=== PATIENT | male | born 1945 | race Two or more races ===

== ENCOUNTER 2016-10-14 01:19 | Emergency (ER) | payer MEDICAID, MEDICARE, OTHER ==
[~2016-10-14] VITALS: Ht 170.2 cm; Wt 104.3 kg
[~2016-10-14 01:19] MED LIST: ACETAMINOPHEN650 M2 ORAL; AMARYL4 MG ORAL; AMBIEN5 MG ORAL; AMMONIUM LACTA140 GM TOPIC; ASPIRIN81 MG ORAL; ATORVASTATIN CA20 MG ORAL; BENADRYL A12.5 MG/5 ORAL; BENAZEPRIL HCL10 MG ORAL; BISACODYL MC; CARAFATE1 GM/10 M1 ORAL; CATAPRES0.1 MG ORAL; CATAPRES0.2 MG ORAL; COLACE50 MG ORAL; DILAUDID2 MG ORAL; DOCUSATE SODIU100 MG ORAL; DULCOLAX10 MG RC; DUONEB 0.5 MG-33 ML INH; FERROUS SU300 MG/52 PO; FUROSEMIDE20 M1 ORAL; GABAPENTIN600 MG ORAL; HEPARIN SO5000 UNIT2 SUBQ; HUMALOG100 UNIT/4 SUBQ; HYDRALAZINE HCL10 MG ORAL; LANTUS SOL100 UNIT/1 SUBQ; MULTIVITAMINS1 EAC8 ORAL; MULTIVITAMINS1 EAC8 PO; NAMENDA10 MG ORAL; NAMENDA5 MG ORAL; NORCO 10/3251 EA ORAL; NOVOLIN 70100 UNIT/1 SUBQ; NOVOLOG100 UNIT/3 SUBQ; NUEDEXTA 20-101 EAC1 PO; OMEPRAZOLE20 M2 ORAL; PROTONIX40 MG ORAL; REGLAN5 MG ORAL; TOUJEO SOL300 UNIT/1 SQ; TRADJENTA5 MG PO; TYLENOL650 MG/20. ORAL; VICODIN 5-5001 EACH ORAL; VITAMIN C250 MG ORAL; XARELTO20 MG ORAL; ZANTAC150 MG ORAL; ZOFRAN ODT4 MG ORAL
--- NOTE | 2016-10-14 01:47 | Emergency Room Report ---
History of Present Illness General Chief Complaint: Abdominal Pain Source: Patient, Medical Record, EMS Present Illness HPI This is a 70-year-old male with a history of diabetes and CVA. He presents with chief complaint of right upper quadrant pain. He also has some burning with urination. Patient said about a week ago he has a forceful vomiting. Since then he said having some pain in the mid upper right upper quadrant area. Worse with palpation. Worse with movement. He was admitted tonight to be evaluated. No new fever. No nausea no vomiting. Pain is 5/10. Worse with movement goes up to 7/10. He has a history of kidney stone in UTI. Allergies: Coded Allergies: WARFARIN SODIUM (Verified Allergy, Intermediate, ITCHING/RASHES/NAUSEA, ) Uncoded Allergies: COUMADIN (Allergy, Unknown, 09/23/15) Patient History Past Medical History: see triage record, old chart reviewed Past Surgical History: other Pertinent Family History: none Social History: Denies: smoking Immunizations: other Reviewed Nursing Documentation: PMH: Agreed, PSxH: Agreed Nursing Documentation-PMH Past Medical History: No History, Except For Hx Cardiac Problems: Yes - Peripheral Vascular disease, anemia Hx Hypertension: Yes Hx Asthma: Yes Hx COPD: Yes Hx Diabetes: Yes - Type 2 Hx Cancer: No Hx Gastrointestinal Problems: Yes - GT in past Hx Dialysis: No - ANEMIA Hx Cerebrovascular Accident: Yes - LEFT SIDED WEAKNESS Hx Seizures: Yes Hx Epilepsy: Yes Hx Peripheral Neuropathy: Yes Hx Speech Problem: Yes Hx Weakness: Yes - left side Review of Systems Eye: Denies: blurred vision, eye pain ENT: Denies: ear pain, nose congestion, throat swelling Respiratory: Denies: cough, shortness of breath Cardiovascular: Denies: chest pain, palpitations Gastrointestinal: Reports: abdominal pain, nausea, vomiting, Denies: diarrhea Musculoskeletal: Denies: back pain, joint pain Skin: Denies: rash Neurological: Denies: headache, numbness Endocrine: Denies: increased thirst, increased urine Hematologic/Lymphatic: Denies: easy bruising All Other Systems: negative except mentioned in HPI Physical Exam Vital Signs Date Time Temp Pulse Resp B/P Pulse Ox O2 Delivery O2 Flow Rate FiO2 10/14/16 01:23 97.5 83 18 115/65 92 Room Air vitals normal Sp02 EP Interpretation: reviewed, normal General Appearance: well appearing, no apparent distress, alert Head: normocephalic, atraumatic Eyes: bilateral eye EOMI, bilateral eye PERRL ENT: hearing grossly normal, normal pharynx Neck: full range of motion, supple, no meningismus Respiratory: chest non-tender, lungs clear, normal breath sounds Cardiovascular #1: regular rate, rhythm, no murmur Gastrointestinal: normal bowel sounds, no mass, no organomegaly, no bruit, non- distended, tenderness - Tender to palpation in the right mid and right upper quadrant area. No guarding. Musculoskeletal: back normal, normal range of motion Neurologic: alert, oriented x3, other - Left-sided hemiparesis Psychiatric: mood/affect normal Skin: warm/dry Medical Decision Making Diagnostic Impression: Primary Impression: Strain of rectus abdominis muscle Qualified Codes: S39.011A - Strain of muscle, fascia and tendon of abdomen, initial encounter Additional Impression: UTI (urinary tract infection) Qualified Codes: N30.00 - Acute cystitis without hematuria ER Course patient presents with right upper quadrant right mid upper quadrant pain. This is secondary to rectus muscle strain/hematoma. this is probably from forceful vomiting a week ago. there is no internal injury. He has no cough or congestion to indicate pneumonia.he does have a urinary tract infection. He grew out Klebsiella in the past and fortunately pain sensitive. We'll discharge home. Lab Results Impression Labs of elevated glucose. CT/MRI/US Diagnostic Results CT/MRI/US Diagnostic Results : Imaging Test Ordered: CT abdomen and pelvis Impression CT read by radiologist. Enlargement the right rectus muscle which may suggest hemorrhage. Cholecystectomy. Last Vital Signs Date Time Temp Pulse Resp B/P Pulse Ox O2 Delivery O2 Flow Rate FiO2 10/14/16 01:23 97.5 83 18 115/65 92 Room Air Status: improved Disposition: HOME, SELF-CARE Condition: Stable Scripts Levofloxacin* (LEVAQUIN*) 500 Mg Tablet 500 MG ORAL DAILY, #7 TAB Prov: DANIELLE GLEZ M.D. 10/14/16 Additional Instructions: Followup with your in 7 days. Return if worse. DANIELLE GLEZ M.D. Oct 14, 2016 01:46
[2016-10-14 02:29] LABS: KETONES,URINE NEGATIVE (NEGATIVE); LEUKOCYTE ESTERASE ,URINE 3+ (NEGATIVE); NITRITE,URINE POSITIVE (NEGATIVE); PH,URINE 5 (4.5-8.0); PROTEIN,URINE NEGATIVE (NEGATIVE); UROBILINOGEN,URINE NORMAL MG/DL (0.0-1.0)
[2016-10-14 02:30] LABS: BASOPHILS % (AUTO) 0.7 % (0.0-2.0); EOSINOPHILS % (AUTO) 4.5 % (0.0-3.0); LYMPHOCYTES % (AUTO) 15.1 % (20.0-45.0); MEAN CORPUSCULAR HEMOGLOBIN 28.6 PG (27.0-31.0); MEAN CORPUSCULAR VOLUME 89 FL (80-99); MEAN PLATELET VOLUME 8.5 FL (6.5-10.1); MONOCYTES % (AUTO) 6.8 % (1.0-10.0); NEUTROPHILS % (AUTO) 72.8 % (45.0-75.0); PLATELET COUNT 225 K/UL (150-450); RED BLOOD COUNT 5.24 M/UL (4.70-6.10); WHITE BLOOD COUNT 12.1 K/UL (4.8-10.8)
[2016-10-14 02:44] LABS: APPEARANCE,URINE SLIGHTLY CLOUDY
[2016-10-14 02:45] LABS: ALANINE AMINOTRANSFERASE 9 U/L (3-41); ALBUMIN/GLOBULIN RATIO 0.9 (1.0-2.7); ANION GAP 13 (5-15); ASPARTATE AMINO TRANSFERASE 23 U/L (5-40); BACTERIA,URINE MANY /HPF; CALCIUM 8.8 mg/dL (8.6-10.2); CARBON DIOXIDE 27 mEQ/L (20-30); CHLORIDE 97 mEQ/L (98-107); CREATININE 0.9 mg/dL (0.7-1.2); GLOMERULAR FILTRATION RATE > 60 mL/min (>60); HEMOLYSIS 14; LIPASE 11 U/L (< 60); POTASSIUM 4.5 mEQ/L (3.4-4.9); SODIUM 137 mEQ/L (135-145); SQUAMOUS EPITHELIAL CELL,UR FEW /LPF (NONE/OCC); TOTAL PROTEIN 6.7 g/dL (6.6-8.7); WBC,URINE 60-80 /HPF (0 - 0)
[2016-10-14 03:15] VITALS: BP 113/51
[2016-10-14] MEDS ORDERED: cefTRIAXone 1 GM in NS 55 ML IVPB ONE (03:30)
[2016-10-14] MEDS ORDERED: Tubing IV Cassette IV ONE (03:35)
[2016-10-14] MEDS ORDERED: NS 55 ML IV ONE (03:35)
[2016-10-14] MEDS ORDERED: LEVAQUIN500 MG ORAL (03:44)
[2016-10-14] MEDS ORDERED: Morphine Sulfate 4mg/ml Inj IVP ONE (04:00)
[2016-10-14 05:00] VITALS: BP 117/66
[2016-10-14 05:32] VITALS: BP 117/66
--- NOTE | 2016-10-14 08:32 | Diagnostic Imaging Report ---
Indication: ABD PAIN Technique: Continuous helical scanning was performed without any contrast material from the diaphragms through the pelvis or specific request.. Axial, sagittal, and coronal images were generated. Dose: Total Dose Length Product - DLP [address] Dose Index - CTDIvol(s) 26.20 mGy. Comparison: 09/23/2015 Findings: Study is suboptimal due to artifact from patient's arms overlying the field. The upper right anterior rectus muscle is enlarged compared to previous study. Severe slight density. There is a nodular primarily interstitial infiltrate in the left lower lobe. Is worsened since prior exam. The liver is unremarkable. The gallbladder is surgically absent. The spleen is normal. The stomach has decompressed. There is a tract to the stomach from an old gastrostomy tube. Pancreas is unremarkable. Adrenal glands are normal. Again seen is a cyst in the right kidney. Kidneys are otherwise unchanged. There is an inferior vena caval filter the renal veins with scarring of the IVC. The aorta is calcified. Retroperitoneum is free of significant adenopathy. The bladder is unremarkable. Prostate and seminal vesicles are normal. The bones are unchanged. The remainder the study is unchanged. Impression: Stomach is decompressed. Left lower lobe infiltrate increased from previous study. Possibility of pneumonia should be considered. Probable hemorrhage in the right upper anterior rectus muscle. This likely represents hemorrhage in the anterior rectus muscle. No other change from previous study.. The above report is concordant with preliminary reading by [employer] . The CT scanner at [facility] is accredited by the [employer] and the scans are performed using protocols designed to limit radiation exposure to as low as reasonably achievable to attain images of sufficient resolution adequate for diagnostic evaluation.
== END 2016-10-14 05:25 | disposition home or self-care (01) ==
LOC: EDBD 01:19 → EMR 01:47
DX: S39.011A Strain of muscle, fascia and tendon of abdomen, initial encounter (principal); N30.00 Acute cystitis without hematuria; X58.XXXA Exposure to other specified factors, initial encounter; Y93.9 Activity, unspecified; Y92.9 Unspecified place or not applicable; Z88.8 Allergy status to other drugs, medicaments and biological substances; I10 Essential (primary) hypertension; Z87.442 Personal history of urinary calculi; E11.40 Type 2 diabetes mellitus with diabetic neuropathy, unspecified; G81.94 Hemiplegia, unspecified affecting left nondominant side; J44.9 Chronic obstructive pulmonary disease, unspecified; J45.909 Unspecified asthma, uncomplicated; G40.909 Epilepsy, unspecified, not intractable, without status epilepticus; D64.9 Anemia, unspecified; Z90.49 Acquired absence of other specified parts of digestive tract
CPT/HCPCS: 36415; 74176; 80053; 81003; 83690; 85025; 87086; 87181; 96360; 96374; 96375; 99284; J0696; J2270; J2405

== ENCOUNTER 2017-02-09 11:27 | Emergency (ER) | payer MEDICARE, OTHER ==
[~2017-02-09] VITALS: Ht 182.9 cm; Wt 86.2 kg
[~2017-02-09 11:27] MED LIST changes: +LEVAQUIN500 MG ORAL
[2017-02-09 11:34] VITALS: BP 127/64
[2017-02-09] MEDS ORDERED: Famotidine 20 MG/ 2ML VIAL IVP ONE (11:45)
[2017-02-09] MEDS ORDERED: Morphine Sulfate 2mg/ml Inj IVP ONE (12:00)
[2017-02-09 12:29] LABS: BASOPHILS % (AUTO) 0.5 % (0.0-2.0); EOSINOPHILS % (AUTO) 3.8 % (0.0-3.0); LYMPHOCYTES % (AUTO) 13.3 % (20.0-45.0); MEAN CORPUSCULAR HEMOGLOBIN 28.1 PG (27.0-31.0); MEAN CORPUSCULAR HGB CONC 31.2 G/DL (32.0-36.0); MEAN CORPUSCULAR VOLUME 90 FL (80-99); MEAN PLATELET VOLUME 8.3 FL (6.5-10.1); MONOCYTES % (AUTO) 6.2 % (1.0-10.0); NEUTROPHILS % (AUTO) 76.3 % (45.0-75.0); PLATELET COUNT 295 K/UL (150-450); RED BLOOD COUNT 5.41 M/UL (4.70-6.10); RED CELL DISTRIBUTION WIDTH 14.3 % (11.6-14.8); WHITE BLOOD COUNT 15.2 K/UL (4.8-10.8)
[2017-02-09 12:39] LABS: PROTHROMBIN TIME 10.2 SEC (9.30-11.50)
[2017-02-09 12:48] LABS: ALANINE AMINOTRANSFERASE 11 U/L (3-41); ANION GAP 11 (5-15); ASPARTATE AMINO TRANSFERASE 15 U/L (5-40); CALCIUM 9.1 mg/dL (8.6-10.2); CARBON DIOXIDE 29 mEQ/L (20-30); CHLORIDE 99 mEQ/L (98-107); HEMOLYSIS 1; LIPASE 11 U/L (< 60); POTASSIUM 3.9 mEQ/L (3.4-4.9); SODIUM 139 mEQ/L (135-145); TOTAL PROTEIN 7.6 g/dL (6.6-8.7)
[2017-02-09 12:49] LABS: TROPONIN I < 0.30 ng/mL (<=0.30)
[2017-02-09 13:52] VITALS: BP 125/69
--- NOTE | 2017-02-09 14:39 | Emergency Room Report ---
History of Present Illness General Chief Complaint: Gastrointestinal Bleed Source: Patient, Caregiver Present Illness HPI Patient is a 71-year-old male brought in by EMS after increased coffee-ground emesis. Patient was noted to have multiple episodes which he was having had dark emesis at his [place] [facility].This happened multiple times throughout the night. Patient prior history of lower extremity cellulitis. Intermittently the patient been on IV antibiotics.Patient not been having a bloody stools. Allergies: Coded Allergies: WARFARIN SODIUM (Verified Allergy, Intermediate, ITCHING/RASHES/NAUSEA, ) Uncoded Allergies: COUMADIN (Allergy, Unknown, 09/23/15) Patient History Past Medical History: see triage record Reviewed Nursing Documentation: PMH: Agreed, PSxH: Agreed Nursing Documentation-PMH Hx Cardiac Problems: Yes - Peripheral Vascular disease, anemia Hx Hypertension: Yes Hx Asthma: Yes Hx COPD: Yes Hx Diabetes: Yes - Type 2 Hx Cancer: No Hx Gastrointestinal Problems: Yes - GT in past Hx Dialysis: No - ANEMIA Hx Cerebrovascular Accident: Yes - LEFT SIDED WEAKNESS Hx Seizures: Yes Hx Epilepsy: Yes Hx Peripheral Neuropathy: Yes Hx Speech Problem: Yes Hx Weakness: Yes - left side Review of Systems All Other Systems: negative except mentioned in HPI Physical Exam Vital Signs Date Time Temp Pulse Resp B/P Pulse Ox O2 Delivery O2 Flow Rate FiO2 02/09/17 11:25 98.4 110 16 123/66 93 Room Air Sp02 EP Interpretation: reviewed, normal General Appearance: normal inspection, well appearing, no apparent distress, alert, GCS 15 Head: atraumatic ENT: normal ENT inspection, hearing grossly normal, normal voice Neck: normal inspection, full range of motion, supple, no bony tend Respiratory: normal inspection, lungs clear, normal breath sounds, no respiratory distress, no retraction, no wheezing Cardiovascular #1: regular rate, rhythm, no edema Gastrointestinal: normal inspection, normal bowel sounds, non tender, soft, no guarding, no hernia Genitourinary: no CVA tenderness Musculoskeletal: normal inspection, back normal, normal range of motion Neurologic: normal inspection, alert, responsive, speech normal, motor weakness Psychiatric: normal inspection, mood/affect normal, other - poor insight judgement Skin: normal inspection, normal color, no rash Medical Decision Making Diagnostic Impression: Primary Impression: DM (diabetes mellitus) Additional Impressions: Hematemesis Left leg cellulitis ER Course Patient presented for hematemesis. The differential diagnosis included wasn't limited to ulcer, bowel obstruction, variceal bleed, coagulopathy, anemia among others.Because of complexity of patient's case laboratory testing and imaging studies were ordered.Laboratory studies are notable for elevated white blood count as well as a normal hemoglobin. Patient medical issues was discussed with the patient's daughter who is his durable power of workers compensation attorney per [place] [facility]. Patient's daughter Julia agreed to transfer for hospitalization . Patient started on IV Pepcid. The patient was discussed with Dr. Arzate who agreed to accept the patient in transfer. Labs Test 02/09/17 12:15 White Blood Count 15.2 K/UL (4.8-10.8) Red Blood Count 5.41 M/UL (4.70-6.10) Hemoglobin 15.2 G/DL (14.2-18.0) Hematocrit 48.6 % (42.0-52.0) Mean Corpuscular Volume 90 FL (80-99) Mean Corpuscular Hemoglobin 28.1 PG (27.0-31.0) Mean Corpuscular Hemoglobin Concent 31.2 G/DL (32.0-36.0) Red Cell Distribution Width 14.3 % (11.6-14.8) Platelet Count 295 K/UL (150-450) Mean Platelet Volume 8.3 FL (6.5-10.1) Neutrophils (%) (Auto) 76.3 % (45.0-75.0) Lymphocytes (%) (Auto) 13.3 % (20.0-45.0) Monocytes (%) (Auto) 6.2 % (1.0-10.0) Eosinophils (%) (Auto) 3.8 % (0.0-3.0) Basophils (%) (Auto) 0.5 % (0.0-2.0) Prothrombin Time 10.2 SEC (9.30-11.50) Prothromb Time International Ratio 1.0 (0.9-1.1) Activated Partial Thromboplast Time 25 SEC (23-33) Sodium Level 139 mEQ/L (135-145) Potassium Level 3.9 mEQ/L (3.4-4.9) Chloride Level 99 mEQ/L (98-107) Carbon Dioxide Level 29 mEQ/L (20-30) Anion Gap 11 (5-15) Blood Urea Nitrogen 18 mg/dL (7-23) Creatinine 1.0 mg/dL (0.7-1.2) Estimat Glomerular Filtration Rate mL/min (>60) Glucose Level 212 mg/dL (74-106) Calcium Level 9.1 mg/dL (8.6-10.2) Total Bilirubin 0.3 mg/dL (0.0-1.2) Aspartate Amino Transf (AST/SGOT) 15 U/L (5-40) Alanine Aminotransferase (ALT/SGPT) 11 U/L (3-41) Alkaline Phosphatase 98 U/L (40-129) Troponin I < 0.30 ng/mL (<=0.30) Total Protein 7.6 g/dL (6.6-8.7) Albumin 3.8 g/dL (3.5-5.2) Globulin 3.8 g/dL Albumin/Globulin Ratio 1.0 (1.0-2.7) Lipase 11 U/L (< 60) Last Vital Signs Date Time Temp Pulse Resp B/P Pulse Ox O2 Delivery O2 Flow Rate FiO2 02/09/17 13:52 98.2 93 14 125/69 96 Room Air Status: unchanged Disposition: ASSISTED LIVING Condition: Serious Referrals: [facility],REFERRING (PCP) Atif Pollack Feb 09, 2017 14:39
[2017-02-09 15:46] VITALS: BP 150/71
[2017-02-09] MEDS ORDERED: LORazepam Inj 2mg/ml 1ml IV ONE (16:45)
[2017-02-09 16:47] VITALS: BP 150/71
== END 2017-02-09 16:50 | disposition short-term general hospital (02) ==
LOC: EDBD 11:27 → EMR 12:41
DX: E11.9 Type 2 diabetes mellitus without complications (principal); K92.0 Hematemesis; L03.116 Cellulitis of left lower limb; Z88.8 Allergy status to other drugs, medicaments and biological substances; I10 Essential (primary) hypertension; J44.9 Chronic obstructive pulmonary disease, unspecified; G81.94 Hemiplegia, unspecified affecting left nondominant side; G40.909 Epilepsy, unspecified, not intractable, without status epilepticus; E11.40 Type 2 diabetes mellitus with diabetic neuropathy, unspecified
CPT/HCPCS: 36415; 80053; 83690; 84484; 85025; 85610; 85730; 86850; 86900; 86901; 96374; 96375; 99284; J2270; S0028

== ENCOUNTER 2017-02-17 12:25 | Emergency (ER) | payer MEDICARE, OTHER ==
[~2017-02-17] VITALS: Ht 172.7 cm; Wt 90.7 kg
--- NOTE | 2017-02-17 12:51 | Emergency Room Report ---
History of Present Illness General Chief Complaint: Upper Respiratory Illness Source: Patient, Medical Record Present Illness HPI 71-year-old male history of hypertension diabetes dementia GERD presenting with hematemesis. Patient is poor historian and unable to give much information. However patient states that he has had nausea and vomiting unclear how many days dark in color. Patient denies any diarrhea or black stools. Patient denies any fever chills chest pain or shortness of breath. Per charts patient is not on aspirin or anticoagulation Upon previous charts patient was here about one week ago for coffee-ground emesis and was transferred to outside hospital for further care at that visit. Unclear if patient had endoscopy or any intervention at that visit. Allergies: Coded Allergies: WARFARIN SODIUM (Verified Allergy, Intermediate, ITCHING/RASHES/NAUSEA, ) Uncoded Allergies: COUMADIN (Allergy, Unknown, 09/23/15) Patient History Past Medical History: see triage record Past Surgical History: unable to obtain Pertinent Family History: unable to obtain Nursing Documentation-[facility] Past Medical History Deferred: Pt Cognitively Impaired Past Medical History: No History, Except For Hx Cardiac Problems: Yes - Peripheral Vascular disease, anemia Hx Hypertension: Yes Hx Asthma: Yes Hx COPD: Yes Hx Diabetes: Yes - Type 2 Hx Cancer: No Hx Gastrointestinal Problems: Yes - GT in past Hx Dialysis: No - ANEMIA Hx Cerebrovascular Accident: Yes - LEFT SIDED WEAKNESS Hx Seizures: Yes Hx Epilepsy: Yes Hx Peripheral Neuropathy: Yes Hx Speech Problem: Yes Hx Weakness: Yes - left side Review of Systems Gastrointestinal: Reports: hematemesis, nausea, vomiting All Other Systems: limited - lmiited due to patients dementia Physical Exam Vital Signs Date Time Temp Pulse Resp B/P Pulse Ox O2 Delivery O2 Flow Rate FiO2 02/17/17 12:19 97.9 115 16 111/81 97 Room Air Sp02 EP Interpretation: reviewed, normal General Appearance: normal inspection, alert, non-toxic, other - elderly male, aox2, conversing appropriately at bedside, not in resp distress, not in pain Head: normocephalic, atraumatic Eyes: bilateral eye EOMI, bilateral eye PERRL, bilateral eye normal inspection ENT: normal ENT inspection, normal pharynx, normal voice, moist mucus membranes Neck: normal inspection, full range of motion, supple, no bony tend Respiratory: normal inspection, lungs clear, normal breath sounds, no respiratory distress, no retraction, no wheezing, speaking full sentences, chest symmetrical Cardiovascular #1: normal inspection, no edema, normal capillary refill, tachycardia Gastrointestinal: normal inspection, non tender, soft, non-distended, no guarding, other - well healed surgical scar on abdomen. soft all quadrants Musculoskeletal: normal inspection, back normal, normal range of motion, non- tender Neurologic: normal inspection, alert, oriented x3, responsive, motor strength/ tone normal, sensory intact, normal gait, speech normal Psychiatric: normal inspection, judgement/insight normal, memory normal Skin: warm/dry, other - Bilateral lower extremity cellulitis. Right lower loo 2x2 cm ulcer nonpurulent drainage on anterior tib-fib with dressing clean dry and intact Medical Decision Making Medicare Attestation I, Anita Stewart MD hereby attest that the medical record entry for date of service, [id number] accurately reflects signatures/notations that I made in my capacity as MD when I treated/diagnosed the above listed Medicare beneficiary. I attest that this information is true, accurate and complete to the best of my knowledge. I understand that any falsification, omission, or concealment of material fact may subject me to administrative, civil, or criminal liability. This patient warrants hospital admission for extreme of age and has a condition that cannot be treated as outpatient. Diagnostic Impression: Primary Impression: History of upper gastrointestinal bleeding Additional Impression: ST segment changes on electrocardiogram ER Course 71 yo [place] sent [place] for ?coffee ground emesis vs. hemoptysis DDX: gerd/gastritis/gastric ulcer/avm vs. hemoptysis: pneumonia, lung CA, lung mass receiving abx for b/l lower ext cellulitis by [place] Plan: Obtain labs, coags, ua, ucx, CXR, EKG ER course: tachycardic 100, rectal temp 100.3 EKG: ?SUSAN in aVR changed from previous. patient is poor historian and unreliable. call to [facility] cardiology made. 1:[address] Quintero cardiology from [facility] - discussed case. patient is currently NAD at bedside, not diaphoretic, not c/o cp. will not activate stemi notification at this time and will trend trop. Labs: CXR: no acute cardiopulm disease troponin: negative x 1 labs: H/H stable from prior, mild leukocytosis improved from last week13.2, coags normal Patint has remained NAD during ed stay, not diaphoretic, not c/o cp/sob. repeat abd exams benign Disposition: Patient is to be xferred to outside hospital. Patient is stable for xfer. I spoke to cardiology Dr Chang / Dr. Quintero, from [facility] discussing patients mild SUSAN in aVR, NO stemi activation at this pamela. trop neg I spoke to Dr. Levin from [facility] who will receive pt. informed to repeat trop and ekg at their facility. Signed out to Dr. Alfredito Bhardwaj -luis antonio to [facility] from hx of UGI and EKG changes -if patient still here at 4 hour fernando, please perform rpeat ekg and trop EKG Diagnostic Results Rate: tachycardiac Rhythm: NSR ST Segments: other - mild SUSAN aVR with lateral depressions ASA given to the pt in ED: No Rhythm Strip Diag. Results EP Interpretation: yes Rate: 122 Rhythm: NSR, no PVC's, no ectopy Chest X-Ray Diagnostic Results Chest X-Ray Diagnostic Results : # of Views/Limited/Complete: 1 View Indication: Other EP Interpretation: Yes Interpretation: no consolidation, other - possible L sided pleural effusion Impression: Other - possible L sided pleural effusion Last Vital Signs Date Time Temp Pulse Resp B/P Pulse Ox O2 Delivery O2 Flow Rate FiO2 02/17/17 12:19 97.9 115 16 111/81 97 Room Air Disposition: [facility] Condition: Critical Anita Stewart M.D. Feb 17, 2017 12:51
[2017-02-17 13:06] VITALS: BP 111/81
[2017-02-17 13:37] LABS: INR 1.1 (0.9-1.1); PROTHROMBIN TIME 11.4 SEC (9.30-11.50)
[2017-02-17 13:40] LABS: TROPONIN I < 0.30 ng/mL (<=0.30)
[2017-02-17 13:43] LABS: ALANINE AMINOTRANSFERASE 9 U/L (3-41); ANION GAP 16 (5-15); ASPARTATE AMINO TRANSFERASE 18 U/L (5-40); CALCIUM 8.5 mg/dL (8.6-10.2); CARBON DIOXIDE 27 mEQ/L (20-30); CHLORIDE 93 mEQ/L (98-107); CREATININE 0.9 mg/dL (0.7-1.2); HEMOLYSIS 33; POTASSIUM 3.1 mEQ/L (3.4-4.9); SODIUM 136 mEQ/L (135-145); TOTAL PROTEIN 6.3 g/dL (6.6-8.7)
[2017-02-17 13:44] LABS: BASOPHILS % (AUTO) 0.8 % (0.0-2.0); EOSINOPHILS % (AUTO) 0.5 % (0.0-3.0); LYMPHOCYTES % (AUTO) 14.2 % (20.0-45.0); MEAN CORPUSCULAR HEMOGLOBIN 29.6 PG (27.0-31.0); MEAN CORPUSCULAR HGB CONC 32.7 G/DL (32.0-36.0); MEAN CORPUSCULAR VOLUME 91 FL (80-99); MEAN PLATELET VOLUME 9.1 FL (6.5-10.1); MONOCYTES % (AUTO) 7.6 % (1.0-10.0); NEUTROPHILS % (AUTO) 76.9 % (45.0-75.0); PLATELET COUNT 246 K/UL (150-450); RED BLOOD COUNT 5.84 M/UL (4.70-6.10); RED CELL DISTRIBUTION WIDTH 14.9 % (11.6-14.8); WHITE BLOOD COUNT 13.2 K/UL (4.8-10.8)
[2017-02-17 13:47] LABS: REFLEX LACTIC ACID YES OR NO YES
[2017-02-17 13:53] LABS: CKMB 2.6 ng/mL (< 6.7)
[2017-02-17] MEDS ORDERED: cefTRIAXone 1 GM in NS 55 ML IVPB ONE (14:30)
[2017-02-17 14:45] LABS: APPEARANCE,URINE CLEAR; KETONES,URINE 4+ (NEGATIVE); LEUKOCYTE ESTERASE ,URINE NEGATIVE (NEGATIVE); NITRITE,URINE NEGATIVE (NEGATIVE); PH,URINE 6 (4.5-8.0); PROTEIN,URINE NEGATIVE (NEGATIVE); UROBILINOGEN,URINE NORMAL MG/DL (0.0-1.0)
[2017-02-17 15:20] VITALS: BP 139/84
[2017-02-17 15:40] VITALS: BP 139/84
--- NOTE | 2017-02-18 10:29 | Diagnostic Imaging Report ---
Indication: Chest pain Technique: XRAY CHEST 1 V Comparison: 12/13/15 Findings: Patient is rotated limiting evaluation. Cardiomediastinal silhouette is grossly stable. Atherosclerotic changes are seen. Linear opacities are seen in the left base. Left costophrenic angle is blunted. Osseous structures are grossly stable. Impression: Linear left basilar probable atelectasis. Left costophrenic angle blunting suggestive of pleural effusion. Clinical correlation/followup recommended.
--- NOTE | 2017-02-18 17:01 | Cardiology Report ---
APPROVED REPORT EKG Measurement Heart [id number] Sinus tachycardia Left axis deviation Prolonged QT Abnormal ECG
== END 2017-02-17 15:45 | disposition short-term general hospital (02) ==
LOC: EDBD 12:25 → EMR 13:00
DX: K92.0 Hematemesis (principal); R94.31 Abnormal electrocardiogram [ECG] [EKG]; R11.2 Nausea with vomiting, unspecified; I10 Essential (primary) hypertension; E11.9 Type 2 diabetes mellitus without complications; I73.9 Peripheral vascular disease, unspecified; J44.9 Chronic obstructive pulmonary disease, unspecified; I69.954 Hemiplegia and hemiparesis following unspecified cerebrovascular disease affecting left non-dominant side; F03.90 Unspecified dementia, unspecified severity, without behavioral disturbance, psychotic disturbance, mood disturbance, and anxiety; L03.116 Cellulitis of left lower limb; L03.115 Cellulitis of right lower limb; L97.819 Non-pressure chronic ulcer of other part of right lower leg with unspecified severity; Z88.8 Allergy status to other drugs, medicaments and biological substances
CPT/HCPCS: 36415; 71010; 80053; 81003; 82550; 82553; 83605; 83690; 84484; 85025; 85610; 85730; 87040; 93005; 96374; 96375; 99285; J0696; J7040

== ENCOUNTER 2017-08-20 17:27 | Emergency (ER) | payer MEDICARE, OTHER ==
[~2017-08-20] VITALS: Ht 182.9 cm; Wt 99.8 kg
[2017-08-20] MEDS ORDERED: METFORMIN HCL500 M1 ORAL (17:56)
[2017-08-20] MEDS ORDERED: BENADRYL25 MG ORAL (17:56)
[2017-08-20] MEDS ORDERED: FUROSEMIDE40 MG ORAL (17:56)
[2017-08-20] MEDS ORDERED: SPIRONOLACTONE25 MG ORAL (17:56)
[2017-08-20] MEDS ORDERED: NITROGLYCERIN0.4 MG SL (17:56)
[2017-08-20] MEDS ORDERED: VITAMIN D250000 UNI1 ORAL (17:56)
[2017-08-20] MEDS ORDERED: CALCIUM500 M3 PO (17:56)
[2017-08-20] MEDS ORDERED: RENA-VITE TABL0.8 M1 PO ×2 (17:56→20:46)
[2017-08-20] MEDS ORDERED: trajenta PO (17:56)
[2017-08-20 18:00] VITALS: BP 142/74
[2017-08-20 19:18] LABS: BASOPHILS % (AUTO) 0.8 % (0.0-2.0); EOSINOPHILS % (AUTO) 3.7 % (0.0-3.0); HEMATOCRIT 50.9 % (42.0-52.0); HEMOGLOBIN 16.4 G/DL (14.2-18.0); LYMPHOCYTES % (AUTO) 14.2 % (20.0-45.0); MEAN CORPUSCULAR VOLUME 88 FL (80-99); MONOCYTES % (AUTO) 7.1 % (1.0-10.0); NEUTROPHILS % (AUTO) 74.3 % (45.0-75.0); PLATELET COUNT 285 K/UL (150-450); RED BLOOD COUNT 5.77 M/UL (4.70-6.10); RED CELL DISTRIBUTION WIDTH 14.3 % (11.6-14.8); WHITE BLOOD COUNT 13.7 K/UL (4.8-10.8)
[2017-08-20 19:26] LABS: ANION GAP 8 mmol/L (5-15); BLOOD UREA NITROGEN 21 mg/dL (7-18); CALCIUM 9.3 MG/DL (8.5-10.1); CARBON DIOXIDE 33 MMOL/L (21-32); CHLORIDE 98 MMOL/L (98-107); CREATININE 1.5 MG/DL (0.55-1.30); SODIUM 139 MMOL/L (136-145)
[2017-08-20 19:30] VITALS: BP 127/78
[2017-08-20 19:30] LABS: ALANINE AMINOTRANSFERASE 13 U/L (12-78); ALBUMIN 3.8 G/DL (3.4-5.0); ALBUMIN/GLOBULIN RATIO 0.8 (1.0-2.7); ALKALINE PHOSPHATASE 111 U/L (46-116); ASPARTATE AMINO TRANSFERASE 17 U/L (15-37); BILIRUBIN,TOTAL 0.3 MG/DL (0.2-1.0)
[2017-08-20] MEDS ORDERED: Morphine Sulfate 2mg/ml Inj IVP ONE (19:30)
[2017-08-20] MEDS ORDERED: Ampicillin/Sulbactam Sod 1.5 GM in NS 55 ML IVPB ONE (19:30)
[2017-08-20] MEDS ORDERED: Morphine Sulfate 4mg/ml Inj IVP ONE (19:30)
--- NOTE | 2017-08-20 19:30 | Emergency Room Report ---
History of Present Illness General Chief Complaint: Skin Rash/Abscess Source: EMS Present Illness HPI 71-year-old male presents to the emergency department from [facility] facility complaining of 10 out of 10 in severity burning painful rash that he also reports is itchy. The rash has been progressing from his lower extremities and now involves the lower half of the torso. Patient reports that the rash has been there for "week or so " he denies fevers. Patient has past medical history significant for GERD, hemiplegia, CVA, hypertension, kidney disease, COPD, peripheral vascular disease and dementia. denies painful mouth sores, CP, palpitations or KERN. Allergies: Coded Allergies: WARFARIN SODIUM (Verified Allergy, Intermediate, ITCHING/RASHES/NAUSEA, ) Uncoded Allergies: COUMADIN (Allergy, Unknown, 09/23/15) Patient History Past Medical History: see triage record Past Surgical History: unable to obtain Pertinent Family History: unable to obtain Reviewed Nursing Documentation: PMH: Agreed, PSxH: Agreed Nursing Documentation-PMH Past Medical History: No History, Except For Hx Cardiac Problems: Yes - Peripheral Vascular disease, anemia Hx Hypertension: Yes Hx Asthma: Yes Hx COPD: Yes Hx Diabetes: Yes - Type 2 Hx Cancer: No Hx Gastrointestinal Problems: Yes - GT in past Hx Dialysis: No - ANEMIA Hx Cerebrovascular Accident: Yes - LEFT SIDED WEAKNESS Hx Seizures: Yes Hx Epilepsy: Yes Hx Peripheral Neuropathy: Yes Hx Speech Problem: Yes Hx Weakness: Yes - left side Review of Systems All Other Systems: negative except mentioned in HPI Physical Exam Vital Signs Date Time Temp Pulse Resp B/P (MAP) Pulse Ox O2 Delivery O2 Flow Rate FiO2 08/20/17 17:28 97.9 118 22 142/74 97 Room Air 97.9 Sp02 EP Interpretation: reviewed, normal General Appearance: alert, GCS 15, non-toxic, mild distress Head: normocephalic, atraumatic Eyes: bilateral eye normal inspection, bilateral eye PERRL ENT: hearing grossly normal, normal pharynx, no angioedema, normal voice, other - no oral lesions. Neck: full range of motion Respiratory: chest non-tender, lungs clear, normal breath sounds, no wheezing, speaking full sentences Cardiovascular #1: regular rate, rhythm, normal capillary refill Gastrointestinal: normal bowel sounds, non tender - superficial ttp about rash , soft Musculoskeletal: back normal, gait/station normal, normal range of motion, non- tender Neurologic: alert, responsive, sensory intact, speech normal, other - hemipelegic Psychiatric: judgement/insight normal Skin: warm/dry, rash - blistering/ulcerative rash to bilateral LE's and abdomen , with areas of macerated appearance of sloughed skin to the anterior ankles/ lower shins. each lesion with surrounding erythema, significant superficial ttp. Lymphatic: no adenopathy Medical Decision Making PA Attestation Dr. kent is my supervising Physician whom patient management has been discussed with. Diagnostic Impression: Primary Impression: Rash and other nonspecific skin eruption Additional Impressions: Blistering rash Tachycardia Sepsis Qualified Codes: A41.9 - Sepsis, unspecified organism ER Course 71-year-old male presents to the emergency department from [facility] facility complaining of 10 out of 10 in severity burning painful rash that he also reports is itchy. The rash has been progressing from his lower extremities and now involves the lower half of the torso. Patient reports that the rash has been there for "week or so " he denies fevers. Patient has past medical history significant for GERD, hemiplegia, CVA, hypertension, kidney disease, COPD, peripheral vascular disease and dementia. denies painful mouth sores, CP, palpitations or KERN. Ddx considered but are not limited to cellulitis, SJS, viral exanthem, insect bites, DVT just to name a few. Vital signs: pt tachycardic, remaining VS are WNL, pt. is afebrile H&PE are most consistent with Blistering/painful rash with secondary cellulitis will do septic work up due to tachycardia. ORDERS: -CBC: leukocytosis -CMP:elevated glucose (342) , and BUN/Cr. -Lactic Acid: 3 ( elevated) - Troponin: 0.00 WNL -Blood cultures: Pending -UA: pending -CXR: mild left sided effusion, poor inspiratory film. ED INTERVENTIONS: -NS Bolus IV -Morphine 4mg IV -Unasyn IV DISPOSITION: at this time pt. will be admitted to Dr. Lemus for Sepsis, Cellulitis and rash. Dr. Lemus agreed to admit the pt. and to continue pt. care management. Labs Test 08/20/17 18:59 White Blood Count 13.7 K/UL (4.8-10.8) Red Blood Count 5.77 M/UL (4.70-6.10) Hemoglobin 16.4 G/DL (14.2-18.0) Hematocrit 50.9 % (42.0-52.0) Mean Corpuscular Volume 88 FL (80-99) Mean Corpuscular Hemoglobin 28.5 PG (27.0-31.0) Mean Corpuscular Hemoglobin Concent 32.3 G/DL (32.0-36.0) Red Cell Distribution Width 14.3 % (11.6-14.8) Platelet Count 285 K/UL (150-450) Mean Platelet Volume 8.7 FL (6.5-10.1) Neutrophils (%) (Auto) 74.3 % (45.0-75.0) Lymphocytes (%) (Auto) 14.2 % (20.0-45.0) Monocytes (%) (Auto) 7.1 % (1.0-10.0) Eosinophils (%) (Auto) 3.7 % (0.0-3.0) Basophils (%) (Auto) 0.8 % (0.0-2.0) Sodium Level 139 MMOL/L (136-145) Potassium Level 4.0 MMOL/L (3.5-5.1) Chloride Level 98 MMOL/L (98-107) Carbon Dioxide Level 33 MMOL/L (21-32) Anion Gap 8 mmol/L (5-15) Blood Urea Nitrogen 21 mg/dL (7-18) Creatinine 1.5 MG/DL (0.55-1.30) Estimat Glomerular Filtration Rate mL/min (>60) Glucose Level 342 MG/DL (74-106) Lactic Acid Level 3.00 mmol/L (0.66-2.22) Calcium Level 9.3 MG/DL (8.5-10.1) Total Bilirubin 0.3 MG/DL (0.2-1.0) Aspartate Amino Transf (AST/SGOT) 17 U/L (15-37) Alanine Aminotransferase (ALT/SGPT) 13 U/L (12-78) Alkaline Phosphatase 111 U/L (46-116) Troponin I 0.000 ng/mL (0.000-0.056) Total Protein 8.7 G/DL (6.4-8.2) Albumin 3.8 G/DL (3.4-5.0) Globulin 4.9 g/dL Albumin/Globulin Ratio 0.8 (1.0-2.7) EKG Diagnostic Results EP Interpretation: Dr. Bhardwaj Rate: tachycardiac - 123 Rhythm: NSR ST Segments: no acute changes Other Impression occasional PVC PA Scribe Text this interpretation was scribed by YUDITH Fulton Chest X-Ray Diagnostic Results Chest X-Ray Diagnostic Results : Chest X-Ray Ordered: Yes # of Views/Limited/Complete: 1 View Indication: Other EP Interpretation: Yes PA Xray: Interpretation reviewed, by supervising MD, and agrees with findings. Interpretation: no consolidation, no pneumothorax, other - mild left sided effusion, poor inspiratory film. Impression: Other - abn: mild left sided effusion. Electronically Signed by: Dilcia Fulton PA-C Last Vital Signs Date Time Temp Pulse Resp B/P (MAP) Pulse Ox O2 Delivery O2 Flow Rate FiO2 08/20/17 18:00 97.9 22 142/74 97 Room Air 97.9 08/20/17 17:28 118 Disposition: ADMITTED INPATIENT Condition: Serious Referrals: NON PHYSICIAN (PCP) Dilcia Fulton Aug 20, 2017 19:30
[2017-08-20] MEDS ORDERED: Unasyn 1.5gm Vial ONE (19:51)
--- NOTE | 2017-08-20 19:55 | Emergency Room Report ---
History of Present Illness General Chief Complaint: Skin Rash/Abscess Source: EMS (Dilcia Fulton) Present Illness HPI Disregard this chart it was created in error. Please see chart created previously for this visit. (Dilcia Fulton) Allergies: Coded Allergies: WARFARIN SODIUM (Verified Allergy, Intermediate, ITCHING/RASHES/NAUSEA, ) Uncoded Allergies: COUMADIN (Allergy, Unknown, 09/23/15) Nursing Documentation-PMH Past Medical History: No History, Except For Hx Cardiac Problems: Yes - Peripheral Vascular disease, anemia Hx Hypertension: Yes Hx Asthma: Yes Hx COPD: Yes Hx Diabetes: Yes - Type 2 Hx Cancer: No Hx Gastrointestinal Problems: Yes - GT in past Hx Dialysis: No - ANEMIA Hx Cerebrovascular Accident: Yes - LEFT SIDED WEAKNESS Hx Seizures: Yes Hx Epilepsy: Yes Hx Peripheral Neuropathy: Yes Hx Speech Problem: Yes Hx Weakness: Yes - left side (Dilcia Fulton) Physical Exam Vital Signs Date Time Temp Pulse Resp B/P (MAP) Pulse Ox O2 Delivery O2 Flow Rate FiO2 08/20/17 17:28 97.9 118 22 142/74 97 Room Air 97.9 (Dilcia Fulton) Medical Decision Making MS Attestation Dr. kent is my supervising Physician whom patient management has been discussed with. (Dilcia Fulton) Medicare Attestation The history of Sherman Clinton has been reviewed and management options for him have been examined and discussed by Alfredito Bhardwaj. I have personally examined and interviewed the patient. (ALFREDITO BHARDWAJ M.D.) ER Course Disregard this chart it was created in error. Please see chart created previously for this visit. (Dilcia Fulton) Last Vital Signs Date Time Temp Pulse Resp B/P (MAP) Pulse Ox O2 Delivery O2 Flow Rate FiO2 08/20/17 18:00 97.9 22 142/74 97 Room Air 97.9 08/20/17 17:28 118 (Dilcia Fulton) Disposition: ADMITTED INPATIENT Condition: Serious Referrals: NON PHYSICIAN (PCP) Dilcia Fulton Aug 20, 2017 19:55 ALFREDITO BHARDWAJ M.D. Aug 23, 2017 06:44
[2017-08-20] MEDS ORDERED: METFORMIN HCL500 M4 ORAL (20:40)
[2017-08-20] MEDS ORDERED: CATAPRES0.2 MG ORAL (20:40)
[2017-08-20] MEDS ORDERED: DOCUSATE SODIU250 MG ORAL (20:40)
[2017-08-20] MEDS ORDERED: ACETAMINOPHEN325 M1 ORAL (20:41)
[2017-08-20] MEDS ORDERED: ZOFRAN4 M3 ORAL (20:44)
[2017-08-20] MEDS ORDERED: ATORVASTATIN CA20 MG ORAL (20:47)
[2017-08-20] MEDS ORDERED: ZYRTEC10 MG ORAL (20:48)
[2017-08-20] MEDS ORDERED: CRANBERRY425 MG PO (20:49)
[2017-08-20] MEDS ORDERED: LIDEX15 GM TOPIC (20:50)
[2017-08-20] MEDS ORDERED: HYDROXYZINE HCL50 M1 PO (20:51)
[2017-08-20] MEDS ORDERED: IVERMECTIN3 MG PO (20:53)
[2017-08-20] MEDS ORDERED: PERMETHRIN60 GM TOPIC (20:55)
[2017-08-20] MEDS ORDERED: PREDNISONE20 MG ORAL (20:56)
[2017-08-20] MEDS ORDERED: TRAMADOL HCL50 MG ORAL (20:57)
[2017-08-20] MEDS ORDERED: VITAMIN D1000 UNI1 ORAL (20:58)
[2017-08-20 21:34] VITALS: BP 145/76
[2017-08-20 22:53] VITALS: BP 147/112
[2017-08-20 22:54] VITALS: BP 147/112
--- NOTE | 2017-08-21 09:15 | Diagnostic Imaging Report ---
Indication: Chest pain Technique: One view of the chest Comparison: 02/17/2017 Findings: Patient is rotated to the left. There is again demonstrated blunting of the left costophrenic angle. There is central bronchial wall thickening. There are retrocardiac linear opacities Left hilar prominence appears similar to previous study. Impression: Left costophrenic angle blunting, may reflect pleural fluid or may be chronic, unchanged from 02/17/2017 Retrocardiac opacities, demonstrated on prior CT scans to represent bronchi with very thick kaur No definite acute process otherwise
--- NOTE | 2017-08-21 15:17 | Cardiology Report ---
APPROVED REPORT EKG Measurement Heart [id number] MD [id number] Sinus tachycardia with occasional premature ventricular complexes Possible Inferior infarct, age undetermined Possible Anterior infarct, age undetermined Abnormal ECG
== END 2017-08-20 22:56 | disposition short-term general hospital (02) ==
LOC: EDBD 17:27 → EDUNIT# 17:27 → EMR 18:27 → EDBEDREQ 20:31 → EMR 22:56
DX: A41.9 Sepsis, unspecified organism (principal); R21 Rash and other nonspecific skin eruption; R00.0 Tachycardia, unspecified; E11.42 Type 2 diabetes mellitus with diabetic polyneuropathy; I73.9 Peripheral vascular disease, unspecified; I10 Essential (primary) hypertension; J44.9 Chronic obstructive pulmonary disease, unspecified; I69.854 Hemiplegia and hemiparesis following other cerebrovascular disease affecting left non-dominant side; K21.9 Gastro-esophageal reflux disease without esophagitis; F03.90 Unspecified dementia, unspecified severity, without behavioral disturbance, psychotic disturbance, mood disturbance, and anxiety; N28.9 Disorder of kidney and ureter, unspecified; Z88.8 Allergy status to other drugs, medicaments and biological substances
CPT/HCPCS: 36415; 71045; 80053; 83605; 84484; 85025; 87040; 93005; 96374; 96375; 99284; J0295; J2270

== ENCOUNTER 2018-09-28 14:56 | Emergency (ER) | payer MEDICARE, OTHER ==
[~2018-09-28] VITALS: Ht 188 cm; Wt 81.6 kg
[~2018-09-28 14:56] MED LIST changes: +ACETAMINOPHEN325 M1 ORAL; +BENADRYL25 MG ORAL; +CALCIUM500 M3 PO; +CRANBERRY425 MG PO; +DOCUSATE SODIU250 MG ORAL; +FUROSEMIDE40 MG ORAL; +HYDROXYZINE HCL50 M1 PO; +IVERMECTIN3 MG PO; +LIDEX15 GM TOPIC; +METFORMIN HCL500 M1 ORAL; +METFORMIN HCL500 M4 ORAL; +NITROGLYCERIN0.4 MG SL; +PERMETHRIN60 GM TOPIC; +PREDNISONE20 MG ORAL; +RENA-VITE TABL0.8 M1 PO; +SPIRONOLACTONE25 MG ORAL; +TRAMADOL HCL50 MG ORAL; +VITAMIN D1000 UNI1 ORAL; +VITAMIN D250000 UNI1 ORAL; +ZOFRAN4 M3 ORAL; +ZYRTEC10 MG ORAL; +trajenta PO
[2018-09-28] MEDS ORDERED: Pantoprazole Inj IV ONE (15:00)
[2018-09-28] MEDS ORDERED: Morphine Sulfate 2mg/ml Inj(IV/IM USE ONLY) IVP ONE (15:00)
--- NOTE | 2018-09-28 15:21 | Emergency Room Report ---
History of Present Illness General Chief Complaint: Gastrointestinal Bleed Source: Patient, Medical Record, EMS Present Illness HPI Patient presents from a long-term facility with allegedly vomiting blood. The patient also states this. He claims to be on a blood thinner because of a prior stroke. Also complains about mild epigastric pain. He denies chest pain. He denies fevers or chills. There's no shortness of breath. He's not sure what color his stools have been. The patient was transferred for an upper GI bleed in 2017. Ultimate diagnosis is not available to us. At that time he also had an abnormal EKG. Patient is status post stroke in allegedly taking a blood thinner. (Only aspirin seen in recon.) He complains of left nipple hardness and left chest pain.. He relates it to a G tube procedure. (G tube removed.) The patient was last admitted here in 2014 these are his discharge diagnoses: 1. Acute respiratory failure secondary to chronic obstructive pulmonary disease with acute bronchitis. 2. Diabetes mellitus out of control. 3. Chest pain from a chemical exposure. 4. Hypertension. 5. Gastroparesis. 6. Hematuria secondary to Palmer trauma. 7. Urinary retention. 8. Benign prostatic hypertrophy. 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 Reviewed Nursing Documentation: PMH: Agreed; PSxH: Agreed Nursing Documentation-PMH Hx Cardiac Problems: Yes - Peripheral Vascular disease, anemia Hx Hypertension: Yes Hx Asthma: Yes Hx COPD: Yes Hx Diabetes: Yes - Type 2 Hx Cancer: No Hx Gastrointestinal Problems: Yes - GT in past Hx Dialysis: No - ANEMIA Hx Cerebrovascular Accident: Yes - LEFT SIDED WEAKNESS Hx Seizures: Yes Hx Epilepsy: Yes Hx Peripheral Neuropathy: Yes Hx Speech Problem: Yes Hx Weakness: Yes - left side Review of Systems All Other Systems: negative except mentioned in HPI Physical Exam Vital Signs Date Time Temp Pulse Resp B/P (MAP) Pulse Ox O2 Delivery O2 Flow Rate FiO2 09/28/18 14:55 98.1 108 18 100/68 99 Room Air Sp02 EP Interpretation: reviewed, normal General Appearance: no apparent distress, GCS 15, non-toxic, other, Chronically Ill Head: normocephalic Eyes: bilateral eye normal inspection, bilateral eye PERRL ENT: moist mucus membranes, other - guaiac + material chin Neck: supple Respiratory: lungs clear, normal breath sounds Cardiovascular #1: regular rate, rhythm Cardiovascular #2: 2+ radial (R) Gastrointestinal: normal inspection, normal bowel sounds, non tender, no mass, non-distended Musculoskeletal: back normal, normal range of motion, no calf tenderness Neurologic: alert, DTRs symmetric, motor weakness - L sided, Babinski - Left, oriented - X2 Psychiatric: mood/affect normal Skin: no rash, other - skin breakdown L leg, onycholysis and some duskiness or R foot (good cap fill and pulses) Medical Decision Making Diagnostic Impression: Primary Impression: Upper gastrointestinal bleed Additional Impressions: Left lower lobe pneumonia Qualified Codes: J18.1 - Lobar pneumonia, unspecified organism Delirium ER Course Patient presents with a history of vomiting blood. Differential includes gastritis, tic ulcer disease, Leidy-Felix tear amongst others. He somewhat tachycardic. He's had upper GI bleed in the past. Evaluation will be with EKG , chest x-ray, abdominal film and labs. The patient will be treated with gentle IV hydration, Protonix and Zofran. The patient also has mild pain and a small dose of morphine will be given. Patient is tachycardic and a bolus is given. EKG was sinus tachycardia left axis deviation and nonspecific ST-T wave changes. Xray with possible infiltrate. KUB no obstruction. INR prolonged. BC sent. ABX started. Vitamin K given. Discussed with Dr. Levin. Patient agitated. Threatening to leave AMA. Not understand consequences of this - delirium. Haldol and Benadryl ordered. Sedated and transferred [facility]. Laboratory Tests Test 09/28/18 15:10 09/28/18 15:40 09/28/18 17:32 White Blood Count 12.6 K/UL (4.8-10.8) H Red Blood Count 5.15 M/UL (4.70-6.10) Hemoglobin 14.4 G/DL (14.2-18.0) Hematocrit 43.2 % (42.0-52.0) Mean Corpuscular Volume 84 FL (80-99) Mean Corpuscular Hemoglobin 27.9 PG (27.0-31.0) Mean Corpuscular Hemoglobin Concent 33.3 G/DL (32.0-36.0) Red Cell Distribution Width 13.4 % (11.6-14.8) Platelet Count 336 K/UL (150-450) Mean Platelet Volume 6.4 FL (6.5-10.1) L Neutrophils (%) (Auto) 73.3 % (45.0-75.0) Lymphocytes (%) (Auto) 21.4 % (20.0-45.0) Monocytes (%) (Auto) 3.8 % (1.0-10.0) Eosinophils (%) (Auto) 0.9 % (0.0-3.0) Basophils (%) (Auto) 0.7 % (0.0-2.0) Prothrombin Time 12.3 SEC (9.30-11.50) H Prothrombin Time INR 1.2 (0.9-1.1) H PTT 27 SEC (23-33) Sodium Level 141 MMOL/L (136-145) Potassium Level 4.3 MMOL/L (3.5-5.1) Chloride Level 98 MMOL/L (98-107) Carbon Dioxide Level 31 MMOL/L (21-32) Anion Gap 12 mmol/L (5-15) Blood Urea Nitrogen 22 mg/dL (7-18) H Creatinine 1.2 MG/DL (0.55-1.30) Estimate Glomerular Filtration Rate mL/min (>60) Glucose Level 172 MG/DL (74-106) H Calcium Level 10.0 MG/DL (8.5-10.1) Total Bilirubin 0.4 MG/DL (0.2-1.0) Aspartate Amino Transferase (AST) 15 U/L (15-37) Alanine Aminotransferase (ALT) 14 U/L (12-78) Alkaline Phosphatase 91 U/L (46-116) Total Creatine Kinase 51 U/L (26-308) Troponin I 0.000 ng/mL (0.000-0.056) Total Protein 8.9 G/DL (6.4-8.2) H Albumin 3.7 G/DL (3.4-5.0) Globulin 5.2 g/dL Albumin/Globulin Ratio 0.7 (1.0-2.7) L Lipase 75 U/L (73-393) Urine Color Lucy Urine Appearance Clear Urine pH 8 (4.5-8.0) Urine Specific [place] 1.010 (1.005-1.035) Urine Protein 1+ (NEGATIVE) H Urine Glucose (UA) Negative (NEGATIVE) Urine Ketones 2+ (NEGATIVE) H Urine Blood Negative (NEGATIVE) Urine Nitrite Negative (NEGATIVE) Urine Bilirubin Negative (NEGATIVE) Urine Ictotest Negative (NEGATIVE) Urine Urobilinogen Normal MG/DL (0.0-1.0) Urine Leukocyte Esterase 1+ (NEGATIVE) H Urine RBC 0 /HPF (0 - 0) Urine WBC 2-4 /HPF (0 - 0) Urine Squamous Epithelial Cells Occasional /LPF Urine Bacteria Occasional /HPF (NONE) Urine Mucus Many /LPF (NONE/OCC) H Lactic Acid Level 3.70 mmol/L (0.4-2.0) H EKG Diagnostic Results Rate: tachycardiac Rhythm: NSR ST Segments: no acute changes Rhythm Strip Diag. Results EP Interpretation: yes Rhythm: no PVC's, no ectopy, other - ST Chest X-Ray Diagnostic Results Chest X-Ray Diagnostic Results : Chest X-Ray Ordered: Yes # of Views/Limited/Complete: 2 View Indication: Other EP Interpretation: Yes Interpretation: no pneumothorax, other - atelectasis L and possible effusion Impression: Other Electronically Signed by: Electronically signed by Iban Allan MD Other X-Ray Diagnostic Results Other X-Ray Diagnostic Results : # of Views/Limited Vs Complete: 2 View Indication: Other EP Interpretation: Yes Interpretation: nonspecific bowel gas, no sbo, other - diffuse gas, merlin filter Impression: Other Electronically Signed by: Electronically signed by Iban Allan MD Last Vital Signs Date Time Temp Pulse Resp B/P (MAP) Pulse Ox O2 Delivery O2 Flow Rate FiO2 09/28/18 18:44 98.1 98 18 122/79 98 Room Air 2.0 Status: improved Disposition: XFER SHT-TRM HOSP Condition: Serious Iban Allan MD Sep 28, 2018 15:21
[2018-09-28 15:33] LABS: BASOPHILS % (AUTO) 0.7 % (0.0-2.0); EOSINOPHILS % (AUTO) 0.9 % (0.0-3.0); HEMATOCRIT 43.2 % (42.0-52.0); HEMOGLOBIN 14.4 G/DL (14.2-18.0); LYMPHOCYTES % (AUTO) 21.4 % (20.0-45.0); MEAN CORPUSCULAR VOLUME 84 FL (80-99); MONOCYTES % (AUTO) 3.8 % (1.0-10.0); NEUTROPHILS % (AUTO) 73.3 % (45.0-75.0); PLATELET COUNT 336 K/UL (150-450); RED BLOOD COUNT 5.15 M/UL (4.70-6.10); RED CELL DISTRIBUTION WIDTH 13.4 % (11.6-14.8); WHITE BLOOD COUNT 12.6 K/UL (4.8-10.8)
[2018-09-28 15:35] LABS: INR 1.2 (0.9-1.1)
[2018-09-28 15:39] LABS: ANION GAP 12 mmol/L (5-15); BLOOD UREA NITROGEN 22 mg/dL (7-18); CARBON DIOXIDE 31 MMOL/L (21-32); CHLORIDE 98 MMOL/L (98-107); CREATININE 1.2 MG/DL (0.55-1.30); POTASSIUM 4.3 MMOL/L (3.5-5.1); SODIUM 141 MMOL/L (136-145)
[2018-09-28 15:43] VITALS: BP 126/81
[2018-09-28 15:44] LABS: ALANINE AMINOTRANSFERASE 14 U/L (12-78); ALBUMIN 3.7 G/DL (3.4-5.0); ALBUMIN/GLOBULIN RATIO 0.7 (1.0-2.7); ALKALINE PHOSPHATASE 91 U/L (46-116); ASPARTATE AMINO TRANSFERASE 15 U/L (15-37); BILIRUBIN,TOTAL 0.4 MG/DL (0.2-1.0); CREATINE KINASE 51 U/L (26-308)
[2018-09-28 16:25] LABS: APPEARANCE,URINE CLEAR; BILIRUBIN, URINE NEGATIVE (NEGATIVE); COLOR,URINE AMBER; GLUCOSE, URINE (UA) NEGATIVE (NEGATIVE); KETONES,URINE 2+ (NEGATIVE); LEUKOCYTE ESTERASE ,URINE 1+ (NEGATIVE); NITRITE,URINE NEGATIVE (NEGATIVE); PH,URINE 8 (4.5-8.0); PROTEIN,URINE 1+ (NEGATIVE); UROBILINOGEN,URINE NORMAL MG/DL (0.0-1.0)
--- NOTE | 2018-09-28 16:38 | Diagnostic Imaging Report ---
EXAM: XR Abdomen, 2 Views CLINICAL HISTORY: vomited coffee ground emesis TECHNIQUE: Frontal view of the abdomen/pelvis with upright view of the abdomen. COMPARISON: chest xray same day FINDINGS: Lower thorax: Ill-defined opacity at the left lung base. Intraperitoneal space: Gas-filled bowel loops with no wall thickening, pneumatosis or free air. Gastrointestinal tract: Unremarkable. No dilation. Organs: Cholecystectomy clips in right upper quadrant abdomen. Bones/joints: Unremarkable. Vasculature: IVC filter projecting over the L2-L3 disc space. IMPRESSION: 1. No findings suspicious for bowel obstruction, perforation or wall thickening to suggest acute inflammation. 2. Possible airspace disease of the left lung base.
--- NOTE | 2018-09-28 16:41 | Diagnostic Imaging Report ---
EXAM: XR Chest, 1 View CLINICAL HISTORY: tachycardia TECHNIQUE: Frontal view of the chest. COMPARISON: Abdomen x-ray same day FINDINGS: Lungs: Left lung volume loss with airspace disease at the left lung base, associated with an ill-defined opacity. Pleural space: Trace left pleural effusion. No pneumothorax. Heart: Unremarkable. No cardiomegaly. Mediastinum: Unremarkable. Bones/joints: Unremarkable. IMPRESSION: Findings suspicious for aspiration pneumonitis or pneumonia in the left lower lobe with a small left parapneumonic effusion.
[2018-09-28] MEDS ORDERED: Phytonadione 10 mg/mL 1ml amp SUBQ ONE (16:45)
[2018-09-28] MEDS ORDERED: Cefepime HCl 2 GM in D5W 55 ML IVPB ONE (17:00)
--- NOTE | 2018-09-28 17:00 | NUR ---
ED Nurse Note:pt. was BIBA from SNF with coffee grownd emesis today, VSS, pt. has vascular wound with dressing on left lower leg, blood and urine sent to labs
[2018-09-28] MEDS ORDERED: Haloperidol 5mg/ml Inj IM ONE (17:15)
[2018-09-28] MEDS ORDERED: DiphenhydrAMINE 50mg/ml Inj IM ONE (17:15)
[2018-09-28] MEDS ORDERED: LORazepam Inj 2mg/ml 1ml IV ONE (17:45)
[2018-09-28 17:54] VITALS: BP 122/79
--- NOTE | 2018-09-28 17:56 | NUR ---
ED Nurse Note:pt. became agitated due to possible sundown syndrom, and resistive to care, he was given haldol IM and ativan IV , blood cultures and lactic sent to labs
[2018-09-28 18:44] VITALS: BP 122/79
--- NOTE | 2018-09-28 19:01 | NUR ---
ED Nurse Note:called report to other hospital, pt. was picked up by ambulance for transfer
--- NOTE | 2018-09-30 12:45 | Cardiology Report ---
APPROVED REPORT EKG Measurement Heart [id number] CT [id number] Sinus tachycardia Left axis deviation Possible Inferior infarct, age undetermined Cannot rule out Anterior infarct, age undetermined Abnormal ECG
== END 2018-09-28 19:03 | disposition short-term general hospital (02) ==
LOC: EDBD 14:56 → EMR 15:05 → EDBEDREQ 15:08 → EMR 19:03
DX: K92.2 Gastrointestinal hemorrhage, unspecified (principal); J18.1 Lobar pneumonia, unspecified organism; I10 Essential (primary) hypertension; E11.9 Type 2 diabetes mellitus without complications; J44.9 Chronic obstructive pulmonary disease, unspecified; I73.9 Peripheral vascular disease, unspecified; I69.354 Hemiplegia and hemiparesis following cerebral infarction affecting left non-dominant side; Z88.8 Allergy status to other drugs, medicaments and biological substances
CPT/HCPCS: 36415; 71045; 74018; 80053; 81003; 82550; 83605; 83690; 84484; 85025; 85610; 85730; 86850; 86900; 86901; 87040; 93005; 96361; 96365; 96372; 96375; 99285; C9113; J1200; J1630; J2270; J2405; J3430; J7040